=== PATIENT | male | born 1985 | race Caucasian/White ===

== ENCOUNTER 2022-11-17 13:00 | Outpatient (RCR) | payer BC ==
[~2022-11-17 13:00] MED LIST: CIPRO 500MG TA500 MG PO; DOXYCYCLINE 10100 MG PO; NAPROSYN500 MG PO; NO HOME MEDICATIONS; NORCO 325 MG-51 TAB PO; PERCOCET 325 MG1 TA2 PO
== END 2022-11-28 | disposition home or self-care (01) ==
LOC: PT.GENESIS
DX: M54.6 Pain in thoracic spine (principal)

== ENCOUNTER 2022-12-05 10:23 | Outpatient (RCR) | payer BC | END 2022-12-28 | disposition home or self-care (01) | LOC: PT.GENESIS | DX: M54.6 Pain in thoracic spine (principal) ==